=== PATIENT | male | born 1980 | race Caucasian/White ===

== ENCOUNTER 2016-10-18 04:22 | Emergency (ER) | payer OTHER ==
[2016-10-18 04:41] VITALS: BP 156/107; PULSE 97; TEMP 98.7; BMI 27.0
[2016-10-18] MEDS ORDERED: METHOCARBAMOL 500 MG TABLET PO ONE (04:52)
[2016-10-18] MEDS ORDERED: IBUPROFEN 400 MG TABLET (FP) PO ONE ×2 (04:52→04:59)
[2016-10-18] MEDS ORDERED: METHOCARBAMOL 500 MG TABLET ONE (04:58)
--- NOTE | 2016-10-18 05:00 | PDOC ---
*Physical Exam - Vital Signs Last Vital Signs Temp Pulse Resp BP Pulse Ox 98.7 F 97 H 14 156/107 100 10/18/16 04:37 10/18/16 04:37 10/18/16 04:37 10/18/16 04:37 10/18/16 04:37 Medical Decision Making - Medical Decision Making 10/18/16 05:00 agree with care from MARY Wilks *DC/Admit/Observation/Transfer Diagnosis at time of Disposition: Back pain, Leg pain, left - Discharge Dispostion Disposition: HOME - Prescriptions Prescriptions: Ibuprofen [Motrin -] 600 mg PO Q6H PRN #20 tablet PRN Reason: Back Pain Methocarbamol [Robaxin -] 500 mg PO Q6H PRN #20 tablet PRN Reason: Back Pain - Referrals Referrals: Bert Nicholson [Primary Care Provider] - - Patient Instructions Printed Discharge Instructions: DI for Low Back Pain Additional Instructions: FOLLOW UP WITH YOUR PRIMARY CARE PROVIDER. CALL TO SCHEDULE APPOINTMENT. TAKE MEDICATIONS PRESCRIBED. WARM COMPRESS TO AFFECTED AREAS NEEDED FOR COMFORT. MOTRIN OR TYLENOL FOR PAIN, ROBAXIN FOR MUSCLE RELAXER. RETURN IF ANY CONCERNS FOR FURTHER EVALUATION. Print Language: SURINAMESE - Post Discharge Activity Work/School Note: Back to Work
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
== END 2016-10-18 06:35 | disposition home or self-care (01) ==
LOC: JER 04:22
DX: M54.5 Low back pain (principal); M79.605 Pain in left leg; Y35.91XA Legal intervention, means unspecified, law enforcement official injured, initial encounter; Y93.89 Activity, other specified; Y92.9 Unspecified place or not applicable; Y99.0 Civilian activity done for income or pay
CPT/HCPCS: 72070-TC; 73552-TC-LT; 99281-25

== ENCOUNTER 2017-06-28 03:44 | Emergency (ER) | payer OTHER ==
[2017-06-28 03:53] VITALS: BP 147/92; PULSE 79; TEMP 97.9; BMI 26.1
[2017-06-28] MEDS ORDERED: IBUPROFEN 400 MG TABLET (FP) PO ONE ×2 (04:02→04:12)
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
== END 2017-06-28 04:53 | disposition home or self-care (01) ==
LOC: JER 03:44
DX: S93.401A Sprain of unspecified ligament of right ankle, initial encounter (principal); X50.1XXA Overexertion from prolonged static or awkward postures, initial encounter; Y93.02 Activity, running; Y92.89 Other specified places as the place of occurrence of the external cause; Y99.0 Civilian activity done for income or pay; Y35.891A Legal intervention involving other specified means, law enforcement official injured, initial encounter
CPT/HCPCS: 73610-TC-RT; 73630-TC-RT; 99283-25

== ENCOUNTER 2019-05-17 05:44 | Emergency (ER) | payer OTHER ==
[2019-05-17 06:39] VITALS: BP 150/90; PULSE 58; TEMP 98.3; BMI 27.4
[2019-05-17] MEDS ORDERED: CYCLOBENZAPRINE HCL 10 MG TABLET (FP) PO ONE (07:27)
[2019-05-17] MEDS ORDERED: IBUPROFEN 400 MG TABLET (FP) PO ONE ×2 (07:27→07:34)
--- NOTE | 2019-05-17 07:31 | PDOC ---
History of Present Illness - General Chief Complaint: Pain, Acute Stated Complaint: NECK AND ARM PAIN,NUMBNESS TO HAND Time Seen by Provider: 05/17/19 07:19 History Source: Patient Exam Limitations: No Limitations - History of Present Illness Initial Comments: 05/17/19 07:31 38y M no p mhx presents with L neck pain since last night. 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 pt dneies any weakness. the pain seems to be positional. No prior history of neck pain or injuries. Denies any other symptmos including fever/chills, urinary or bowel incontinence. no lower back pain. ROS: General: denies fever/chills Neck: +left neck pain, radiates to the L arm Neuro: denies any numbness/weakness, +tingling to L hand/arm Abd: denies n/v Physical Exam: General: well appaering, in no distress NECK: mild ttp to parapsinal regin of L paracervical region, no focal midline ttp, no stepoffs, ecchymosis, or erythema MSK: sensation symmetric in all territories of hand/forwarm, motor function in radial/ulanar/median distributions intact, a&p - 38y M presents with atraumatic L neck pain that is positional with tingling/radiation to the L arm with no neuro deficits dx - cervical radiculopathy - willt reat with motrin/flexeril, heat instructed to avoid heavy lifting pmD fu I discussed the physical exam findings, ancillary test results and final diagnoses with the patient. I answered all of the patient's questions. The patient was satisfied with the care received and felt comfortable with the discharge plan and treatment plan. The patient will call their primary care physician within 24 hours to arrange follow-up and will return to the Emergency Department with any new, persistent or worsening symptoms. Past History - Past Medical History Allergies/Adverse Reactions: Allergies Allergy/AdvReac Type Severity Reaction Status Date / Time No Known Allergies Allergy Verified 05/17/19 06:29 Home Medications: Ambulatory Orders Ibuprofen [Motrin -] 600 mg PO Q6H PRN #20 tablet 10/18/16 Ibuprofen 800 mg PO TID #30 tablet 06/28/17 Cyclobenzaprine HCl [Flexeril 10 mg] 10 mg PO BID PRN #20 tablet 05/17/19 COPD: No - Immunization History Immunization Up to Date: Yes - Suicide/Smoking/Psychosocial Hx Smoking History: Never smoked Have you smoked in the past 12 months: No Hx Alcohol Use: No Drug/Substance Use Hx: No Substance Use Type: None *Physical Exam - Vital Signs Last Vital Signs Temp Pulse Resp BP Pulse Ox 98.3 F 58 L 18 150/90 100 05/17/19 06:27 05/17/19 06:27 05/17/19 06:27 05/17/19 06:05/17/19 06:27 *DC/Admit/Observation/Transfer Diagnosis at time of Disposition: Radiculopathy affecting upper extremity - Discharge Dispostion Disposition: HOME Condition at time of disposition: Improved Decision to Admit order: No - Prescriptions Prescriptions: Cyclobenzaprine HCl [Flexeril 10 mg] 10 mg PO BID PRN #20 tablet PRN Reason: Back Pain - Referrals Referrals: Bert Nicholson [Primary Care Provider] - - Patient Instructions Printed Discharge Instructions: DI for Cervical Radiculopathy Additional Instructions: Please avoid heavy lifting for the next 7 days. Take ibuprofen 400mg every 6 hours for the next 3 days. Take flexeril as needed for neck pain as directed. Follow up with your primary care doctor within 5-7 days for reassessment of your symtoms. REturn to the ER if the neck pain worsens or if you have any numbness or weakness. Print Language: GEORGIAN - Post Discharge Activity Forms/Work/School Notes: Back to Work
[2019-05-17] MEDS ORDERED: CYCLOBENZAPRINE HCL 10 MG TABLET (FP) ONE (07:34)
== END 2019-05-17 07:42 | disposition home or self-care (01) ==
LOC: JER 05:44
DX: M54.12 Radiculopathy, cervical region (principal); X50.9XXA Other and unspecified overexertion or strenuous movements or postures, initial encounter; Y93.F2 Activity, caregiving, lifting; Y92.89 Other specified places as the place of occurrence of the external cause; Y99.0 Civilian activity done for income or pay
CPT/HCPCS: 99282-25

== ENCOUNTER 2022-06-06 14:15 | Emergency (ER) | payer OTHER ==
[2022-06-06 14:27] VITALS: BP 154/94; PULSE 84; RESP 16; TEMP 98.3; BMI 28.8
== END 2022-06-06 14:35 | disposition home or self-care (01) ==
LOC: FER 14:15
DX: Z00.00 Encounter for general adult medical examination without abnormal findings (principal)
CPT/HCPCS: 99281-25